=== PATIENT | female | born 1970 | race Caucasian/White ===

== ENCOUNTER 2017-05-05 18:20 | Emergency (ER) | payer OTHER ==
--- NOTE | 2017-05-05 18:50 | UC ---
Eye Complaint HPI - HPI Summary HPI Summary: 46 YEAR OLD FEMALE PRESENTS WITH COMPLAINS OF LEFT EYE PAIN/SWELLING. - History of Current Complaint Stated Complaint: LEFT EYE SWELLING AND PAIN Time Seen by Provider: 05/05/17 18:50 Hx Obtained From: Patient Hx Last Menstrual Period: 10/24/16 Onset/Duration: Sudden Onset Timing: Constant Severity Initially: Moderate Severity Currently: Moderate Pain Scale Used: 0-10 Numeric - 7 Location of Injury: Conjunctiva Character: Sharp, Throbbing Aggravating Factor(s): Light Alleviating Factor(s): Nothing - Allergies/Home Medications Allergies/Adverse Reactions: Allergies Allergy/AdvReac Type Severity Reaction Status Date / Time Acetaminophen Allergy Facial Verified 05/05/17 18:51 [From NyQuil Nighttime Redness/Flushing Cold/Flu Medicine] Bee Venom Allergy Rash Verified 05/05/17 18:51 Dextromethorphan Allergy Facial Verified 05/05/17 18:51 [From NyQuil Nighttime Redness/Flushing Cold/Flu Medicine] Doxylamine Allergy Facial Verified 05/05/17 18:51 [From NyQuil Nighttime Redness/Flushing Cold/Flu Medicine] Ethanol Allergy Facial Verified 05/05/17 18:51 [From NyQuil Nighttime Redness/Flushing Cold/Flu Medicine] Gabapentin [From Neurontin] Allergy See Comment Verified 05/05/17 18:51 Penicillins [PCN] Allergy Hives Verified 05/05/17 18:51 Pseudoephedrine Allergy Facial Verified 05/05/17 18:51 [From NyQuil Nighttime Redness/Flushing Cold/Flu Medicine] Sulfamethoxazole Allergy Hives Verified 05/05/17 18:51 w/Trimethoprim [From Bactrim] PMH/Surg Hx/FS Hx/Imm Hx Previously Healthy: Yes - Surgical History Surgical History: Yes Surgery Procedure, Year, and Place: tonsillectomy, csection x2, tubal x2, tubal reversal - Family History Known Family History: Negative: Diabetes - Social History Alcohol Use: Occasionally Substance Use Type: None Smoking Status (MU): Never Smoked Tobacco Review of Systems Constitutional: Negative Skin: Negative Eyes: Drainage, Eye Redness, Photophobia ENT: Negative Respiratory: Negative Cardiovascular: Negative Gastrointestinal: Negative Genitourinary: Negative Motor: Negative Neurovascular: Negative Musculoskeletal: Negative Neurological: Negative Psychological: Negative All Other Systems Reviewed And Are Negative: Yes Physical Exam Triage Information Reviewed: Yes Vital Signs Reviewed: Yes Eyes: Positive: Conjunctiva Inflamed, Discharge ENT Exam: Normal Dental Exam: Normal Neck exam: Normal Neck: Positive: 1 Respiratory Exam: Normal Cardiovascular Exam: Normal Abdominal Exam: Normal Musculoskeletal Exam: Normal Neurological Exam: Normal Psychological Exam: Normal Skin Exam: Normal Eye Complaint Course/Dx - Differential Dx/Diagnosis Provider Diagnoses: ALLERGIC CONJUNCTIVITIS Discharge - Discharge Plan Condition: Stable Disposition: HOME Prescriptions: DOXYcycline CAP(*) [DOXYcycline 100MG CAP(*)] 100 mg PO BID #14 cap Magic M W2 Adama/Maal/Nyst/Lido* 5 ml SWISH SPIT QID PRN #120 ml PRN Reason: Sore Throat Tobramycin/Dexameth OPTH.SUSP* [Tobradex 0.3-0.1%*] 1 drop LEFT EYE Q6H #1 btl Patient Education Materials: Pharyngitis (ED), Sinusitis (ED), Strep Throat (ED ), Eye Pain (ED) Referrals: Talat Hall MD [Medical Doctor] - Bev BUTLER,Santiago Cherry [Primary Care Provider] -
[2017-05-05 19:00] VITALS: BP 105/69
== END 2017-05-05 19:23 | disposition home or self-care (01) ==
LOC: UCCORT 18:20
DX: H10.12 Acute atopic conjunctivitis, left eye (principal); Z88.5 Allergy status to narcotic agent; Z88.8 Allergy status to other drugs, medicaments and biological substances
CPT/HCPCS: 87651; 99212; G0463

== ENCOUNTER 2018-04-23 07:58 | Inpatient (IN) | payer OTHER ==
[~2018-04-23 07:58] MED LIST: Buffered Lidocaine 0.9% SYRIN* 5 ML/SYR SYRINGE INTRADERM ONE; Dexamethasone IV* 4 MG/ML 1 ML (4 MG) IV SLOW PU ONE
[2018-04-23] MEDS ORDERED: Dexamethasone IV* 4 MG/ML 1 ML (4 MG) ONE (09:11)
[2018-04-23] MEDS ORDERED: Clindamycin 900 MG/D5W BAG(*) 900 MG/50 ML BAG IVPB ONE (09:16)
[2018-04-23] MEDS ORDERED: Ondansetron INJ* 2 MG/ML VIAL IV PRN (09:45)
[2018-04-23] MEDS ORDERED: diPHENhydraMINE IV* 50 MG/ML 1 ml VIAL (BENADRYL) IV PRN (09:45)
[2018-04-23] MEDS ORDERED: Ferrous Sulfate TAB* 325 MG PO PRN (09:58)
[2018-04-23] MEDS: oxyCODONE TAB* 5 MG TAB PO PRN ×2 (10:42→20:30)
[2018-04-23] MEDS: Acetaminophen TAB* 325 MG PO SCH ×2 (13:00→20:31)
[2018-04-23] MEDS ORDERED: Vancomycin(*) 1,000 MG - ED ONCE IVPB ONE ×2 (14:00)
--- OUTSIDE RECORDS SUMMARY | 2018-04-23 15:07 | XMS REPORT ---
:1970 External Reference #:[id number] Author Organization [employer] Address [address] [place] [address] Phone [phone] Care Team Providers Name Role Phone Dayo Mina M.D. Primary Care Physician Unavailable Payers Type Date Identification Numbers Payment Provider Subscriber Commercial Policy Number: [id number] Juve Shah PayID: [id number] [address] [place] [address] Problems Date Description Provider Status Onset: 04/21/2018 Closed fracture of metatarsal bone Humberto Yao MD Active Social History Type Date Description Comments Smoking Patient has never smoked Allergies, Adverse Reactions, Alerts Date Description Reaction Status Severity Comments 04/21/2018 Penicillin active 04/21/2018 Neurontin active 04/21/2018 Bactrim active 04/21/2018 Latex active Medications Medication Date Status Form Strength Qnty SIG Indications Ordering Provider Clindamycin Active Capsules 150mg 15caps 1 by Humberto HCL 018 mouth Najma three times a day Knee Scooter Active use as S92.322A Humberto 018 needed sadaf Yao MD non-weigh tbearing S92.332A S92.342A Hydrocodone-Acetaminophen Active Tablets 5-325mg Unknown Clonidine HCL Active Tablets 0.3mg Santiago Pablo PA Hydroxyzine HCL Active Tablets 25mg Santiago Pablo PA Lovastatin Active Tablets 40mg Santiago Pablo PA Pramipexole Dihydrochloride Active Tablets 0.5mg Santiago Pablo PA Vitamin D (Ergocalciferol) Active Capsules [id number] Summer Carrillo FNP Tizanidine HCL Active Tablets 4mg Santiago Pablo PA Omeprazole Active Capsules DR 20mg Summer Carrillo FNP Nabumetone Active Tablets 500mg Unknown Metoclopramide HCL Active Tablets 10mg Dayo Mina M.D. Metformin HCL Active Tablets 500mg Dayo Mina M.D. Dicyclomine HCL Active Capsules 10mg Summer Carrillo FNP Aripiprazole Active Tablets 5mg Unknown Bupropion HCL ER (XL) Active Tablets ER 300mg Unknown 24HR Vital Signs Date Vital Result Comment 04/21/2018 Height 69 inches 5'9" Weight 200.00 lb Heart Rate 70 /min BP Systolic 130 mmHg BP Diastolic 74 mmHg Respiratory Rate 14 /min Pain Level 10 BMI (Body Mass Index) 29.5 kg/m2 Results Description No Information Procedures Date CPT Code Description Status 04/21/2018 82588 application of short leg splint Completed Encounters Type Date Location Provider CPT E/M Dx Office Visit 04/21/2018 [place] [id number] S92.322A 2:[facility] S92.332A S92.342A Plan of Care Future Appointment(s):05/05/2018 11:15 am - Humberto Yao MD [facility]04/21/2018 - Humberto Yao MDS92.322A Disp fx of second metatarsal bone, left foot, initNew Medication:Knee ScooterNew Xrays:Foot Left 3 + VWSFollow up:Follow Up: 13-15 days avallcM16.332A Disp fx of third metatarsal bone, left foot, initNew Medication:Knee BghucygT59.342A Disp fx of fourth metatarsal bone, left foot, initNew Medication:Knee Scooter
[2018-04-23 15:09] LABS: ABS Basophils 0 10^3/ul (0-0.2); ABS Eosinophils 0.1 10^3/ul (0-0.6); ABS Lymphocytes 1.4 10^3/ul (1.0-4.8); ABS Monocytes 0.4 10^3/ul (0-0.8); ABS Neutrophils 7.4 10^3/ul (1.5-7.7); ABS Nucleated RBC 0 10^3/ul; Eosinophil % 1.1 % (0-6); Hematocrit 35 % (35-47); Hemoglobin 11.8 g/dl (12.0-16.0); Lymphocyte % 14.8 % (25-47); Mean Corpuscular HGB Conc 34 g/dl (31-36); Mean Corpuscular Hemoglobin 28 pg (27-31); Mean Corpuscular Volume 83 fL (80-97); Mean Platelet Volume 6.7 um3 (7.4-10.4); Nucleated Red Blood Cells % 0.3; Platelet Count 268 10^3/ul (150-450); Red Blood Count 4.21 10^6/ul (4.00-5.40); Red Cell Distribution Width 13 % (10.5-15); White Blood Count 9.3 10^3/ul (3.5-10.8)
[2018-04-23] MEDS ORDERED: Dextrose 50% Syringe 50 ML* 25 GM/50 ML SYRINGE IV PUSH PRN (15:31)
[2018-04-23] MEDS ORDERED: Vancomycin per Pharmacy* NOTE FOLLOW UP PRN (15:51)
[2018-04-23] MEDS: Insulin LISPRO* 1 UNITS UNIT SUBCUT SCH ×2 (17:07→20:36)
--- NOTE | 2018-04-23 17:28 | CONS ---
CONSULTATION REPORT: DATE OF CONSULT: 04/23/18 REQUESTING PHYSICIAN: Dr. Yao. CONSULTING SERVICE: Infectious Disease. REASON FOR CONSULT: Left foot cellulitis. IMPRESSION: 1. Left lateral foot cellulitis in the setting of a recent abrasion from a fall about 10 or 12 days ago, which resulted in some metatarsal fractures. She had been casted earlier in the week and when the casting came off today in preparation for surgery, there was cellulitis. She has been on clindamycin for a couple of days in the meantime because of the abrasion. This could be staphylococcus or streptococcus. 2. Obesity. 3. Type 2 diabetes. RECOMMENDATION: Vancomycin goal trough 10 to 15, a CRP today, which we can follow along with her skin abnormality. HISTORY OF PRESENT ILLNESS: This is a 47-year-old diabetic woman admitted with left foot infection. She had fallen 10 to 12 days ago, had an abrasion on her foot, was seen at [facility], had a soft cast placed, followed up with Dr. Yao, was casted earlier in the week and started clindamycin because of an abrasion. She was here today for internal fixation, but because Dr. Yao noticed redness in the lateral foot on the abrasion at that time was , she is admitted now for IV antibiotics. She had taken clindamycin for about a day and a half and tolerated it well. She has not had an infection requiring hospitalization in the past or skin or soft tissue infection that she can recall. PAST MEDICAL HISTORY: 1. Obesity. 2. Diabetes, type 2. 3. Depression. 4. Iron deficiency. 5. Insomnia. 6. Hyperlipidemia. MEDICATIONS: 1. Tylenol. 2. Aripiprazole. 3. Bupropion. 4. Clonidine tablet. 5. Enoxaparin. 6. Ferrous sulfate. 7. Ibuprofen as needed. 8. Lovastatin. 9. Metformin. 10. Reglan. 11. Nystatin. 12. Omeprazole. 13. Pramipexole. 14. Trazodone. ALLERGIES: PENICILLIN caused hives, BACTRIM caused hives, DEXTROMETHORPHAN. FAMILY HISTORY: No recurrent infections. SOCIAL HISTORY: She lives in [place]. She denies injection drugs. She has no travel. REVIEW OF SYSTEMS: All negative except as noted above in 14-point review of systems. PHYSICAL EXAM: Vital Signs: Temperature is 36.2, heart rate 80, respiratory rate 16, blood pressure 106/76, oxygen saturation 98% on room air. In general, she is awake, not in distress. Neurologic: She is oriented x3, follows all commands. Moves all extremities. Sensation is intact to light touch in both feet. HEENT: There is no conjunctival hemorrhage. Oropharynx: Without lesions. Neck: Supple without mass. Lymph Nodes: There is no cervical, supraclavicular, inguinal, axillary, or epitrochlear lymphadenopathy. Heart has regular rate and rhythm without murmurs, rubs, or gallops. Lungs are clear to auscultation bilaterally. Abdomen: Soft, nontender, nondistended. There are bowel sounds present. Skin: There is no rash or splinter hemorrhage. Musculoskeletal: Left lateral foot well- demarcated erythema with tenderness, slight warmth. The erythema is non-blanching. There is no fluctuance. LABORATORY DATA: Glucose is 190. Please see impressions and recommendations as outlined above, which I have discussed with STEPHANIE Nova. Thanks for asking me to see Ms. Shah in consultation. [id number]/[facility] #: [id number] MTDD
[2018-04-23] MEDS: Ibuprofen TAB* 600 MG PO PRN (17:53)
[2018-04-23] MEDS: Vancomycin(*) 1,250 MG in NS 0.9% 250 ML* 250 ML IVPB SCH (20:05)
[2018-04-23] MEDS: Nystatin TOP POWDER* 15 GM BTL TOPICAL SCH (20:09)
[2018-04-23] MEDS: traZODone TAB* 100 MG PO SCH (20:30)
[2018-04-23] MEDS: Pramipexole TAB* 0.5 MG PO SCH (20:31)
[2018-04-23] MEDS: tiZANidine TAB* 2 MG PO SCH (20:31)
[2018-04-23] MEDS: Omeprazole CAP* 20 MG PO SCH (20:31)
[2018-04-23] MEDS: Dicyclomine CAP* 10 MG PO SCH (20:32)
[2018-04-23] MEDS: cloNIDine TAB* 0.1 MG PO SCH (20:32)
[2018-04-23] MEDS: hydrOXYzine HCL TAB* 50 MG PO SCH (20:32)
[2018-04-23] MEDS: DOXYcycline CAP(*) 100 MG PO SCH (20:32)
[2018-04-23] MEDS: ARIPiprazole TAB* 5 MG PO SCH (20:32)
[2018-04-23] MEDS: Atorvastatin* 10 MG TAB PO SCH (20:32)
[2018-04-23] MEDS: Metoclopramide TAB* 10 MG PO SCH (20:32)
[2018-04-23] MEDS: Nabumetone TAB* 500 MG PO SCH (20:35)
[2018-04-23] MEDS: Enoxaparin(*) 40 MG/0.4 ML SYR SUBCUT SCH (20:36)
[2018-04-23] MEDS ORDERED: metFORMIN* 500 MG TAB PO SCH (21:00)
--- NOTE | 2018-04-23 21:49 | CONS ---
CC: CARRIE Siddiqui; Dr. Yao; Dr. Maldonado * CONSULTATION REPORT: DATE OF CONSULT: 04/23/18 PRIMARY CARE PROVIDER: CARRIE Siddiqui REQUESTING PHYSICIAN: Dr. Yao. INFECTIOUS DISEASE SPECIALIST: Dr. Maldonado. CHIEF COMPLAINT: Left foot fracture. HISTORY OF PRESENT ILLNESS: Ruthie Shah is a 47-year-old female with history of obesity and diabetes, who slipped, fell and fractured her left 2nd, 3rd and 4th metatarsal bone. She was seen by Dr. Yao in the office and was diagnosed . She had a cast that was kept open today preoperatively. She was scheduled originally for ORIF of the fracture. It was noted once the cast was removed, the patient had cellulitis in the area of the left foot. She was admitted to the hospital. Medicine consult was requested for medical management of diabetes and hypertension. PAST MEDICAL HISTORY: 1. Diabetes type 2 for the past year or 2. 2. History of dyslipidemia. 3. Gastroesophageal reflux disease. 4. History of anemia. 5. Anxiety. 6. History of depression. 7. History of PTSD. 8. History of chronic lower back pain. PAST SURGICAL HISTORY: 1. History of . 2. History of tubal ligation. 3. Tubal ligation reversal in the past. MEDICATIONS AT HOME: Include: 1. Percocet 1 tablet on a p.r.n. basis. 2. Clonidine 0.3 mg q.p.m. 3. Effexor XR 150 mg daily. 4. Hydroxyzine 50 mg at bedtime. 5. Metformin 500 mg b.i.d. 6. Trazodone 200 mg at bedtime. 7. Valtrex 1 g daily p.r.n. 8. Tizanidine 4 mg b.i.d. 9. Mirapex 0.5 mg at bedtime. 10. Omeprazole 20 mg daily. 11. Nystatin on a p.r.n. basis b.i.d. 12. Relafen 500 mg b.i.d. 13. Reglan 10 mg b.i.d. 14. Mevacor 40 mg at bedtime. 15. Ibuprofen on a p.r.n. basis. 16. Ferrous sulfate 325 mg daily p.r.n. 17. Vitamin D 50,000 units weekly. 18. Doxycycline 100 mg b.i.d. 19. Clindamycin 150 mg b.i.d. 20. Bupropion XL 300 mg daily. 21. Abilify 7.5 mg q.p.m. ALLERGIES: Include PENICILLIN, NEURONTIN, BACTRIM, and LATEX. FAMILY HISTORY: Positive for mother with anxiety. Father with diabetes. SOCIAL HISTORY: The patient denies any tobacco or drug use. She drinks rarely. She lives with her father, who will be her surrogate. Her father's name is Chip Colindres. REVIEW OF SYSTEMS: Please see history of present illness. The patient stated that she had been nonweightbearing on the left foot. She denies any shortness of breath or chest pain. She denies any recent fevers. Her appetite had been good. Her sugars have been rather well controlled; however, she does not check them that often. All the remaining 12 systems reviewed with the patient and were otherwise negative. PHYSICAL EXAM: Blood pressure of 105/65, heart rate of 92 and regular, respiratory rate 16, oxygen saturation 92% on room air, temperature 97.8. General: The patient is a very pleasant 47-year-old female, who is in no acute distress. Alert, awake, and oriented x3. HEENT: Head: Atraumatic, normocephalic. Eyes: Pupils are equal and reactive to light and accommodation. Oropharynx clear. Mucosa moist. Neck: Supple. No JVD. No bruits bilaterally. Cardiovascular: Regular rate and rhythm. No murmur. Respiratory: Clear to auscultation bilaterally. Abdomen: Prominent, soft, nontender. Bowel sounds are present in all 4 quadrants. Extremities: There is left midfoot edema with cellulitic/ecchymotic lesion on the dorsal and medial aspect of the left foot of approximately 20 cm in diameter. There are no fluctuant lesions within the area. There are no open skin wounds in the area. Pulses are +2 bilaterally. There is no clubbing or cyanosis. Neuro Evaluation : Speech clear. Cranial nerves II through XII are grossly intact. Motor strength is 5/5 bilaterally. DIAGNOSTIC STUDIES/LAB DATA: Laboratory data showed white blood cell count of 9.3, hemoglobin of 11.8, hematocrit of 35, and platelets of 268. ESR is pending. C- reactive protein was 53, glucose of 191. ASSESSMENT AND PLAN: 1. In regards to the patient's left foot cellulitis, it appears to be more bruise and ecchymotic area than cellulitis; nevertheless, the Infectious Disease specialist, Dr. Maldonado was already involved in the patient's care. The patient is currently on doxycycline as well as vancomycin while hospitalized. ID is going to follow. The patient is anticipated to undergo the surgery in approximately 3 days. 2. For the patient's diabetes, the patient is going to be placed on insulin sliding scale. Her metformin is going to be held while the patient is in the hospital. 3. For the patient's hypertension, clonidine is going to be continued. It is well controlled. 4. For the patient's history of depression, anxiety and posttraumatic stress disorder, aripiprazole and bupropion are going to be continued. 5. For DVT prophylaxis, the patient was already placed on enoxaparin by the surgical service. 6. The patient's code status was full and surrogate is her father as mentioned above. TIME SPENT: Approximately 55 minutes was spent on consultation of this patient , more than half that time was spent [id number] with the patient during the interview and physical exam. Thank you very much for allowing me to see your patient in consultation. We will follow with the patient on a daily basis. [id number]/[facility] #: [id number] ZULMA
[2018-04-24] MEDS: Ibuprofen TAB* 600 MG PO PRN ×3 (00:05→15:44)
[2018-04-24] MEDS: Acetaminophen TAB* 325 MG PO SCH ×3 (04:56→22:46)
[2018-04-24] MEDS: oxyCODONE TAB* 5 MG TAB PO PRN ×2 (04:56→13:46)
[2018-04-24] MEDS: Vancomycin(*) 1,250 MG in NS 0.9% 250 ML* 250 ML IVPB SCH ×3 (04:57→20:20)
[2018-04-24] MEDS: tiZANidine TAB* 2 MG PO SCH ×2 (08:28→22:48)
[2018-04-24] MEDS: Metoclopramide TAB* 10 MG PO SCH ×2 (08:29→22:48)
[2018-04-24] MEDS: Dicyclomine CAP* 10 MG PO SCH ×2 (08:29→22:53)
[2018-04-24] MEDS: DOXYcycline CAP(*) 100 MG PO SCH (08:29)
[2018-04-24] MEDS: Venlafaxine EXT RELEASE CAP* 75 MG PO SCH (08:29)
[2018-04-24] MEDS: BuPROPion XL* 300 MG TAB.XL PO SCH (08:29)
[2018-04-24] MEDS: Nabumetone TAB* 500 MG PO SCH ×2 (08:30→22:48)
[2018-04-24] MEDS: Insulin GLARGINE(*) 1 UNITS UNIT SUBCUT SCH (08:30)
[2018-04-24] MEDS: Insulin LISPRO* 1 UNITS UNIT SUBCUT SCH ×4 (08:30→22:48)
[2018-04-24] MEDS: Nystatin TOP POWDER* 15 GM BTL TOPICAL SCH ×2 (08:32→22:48)
--- NOTE | 2018-04-24 10:41 | PN ---
Progress Note - Progress Note Date of Service: 04/24/18 SOAP: Subjective: Pt doing well today, feeling better. No f/c. Could not tolerate je wrap on foot due to pain. Denies CP/SOB, n/v Objective: Vitals: Temp Pulse Resp BP Pulse Ox 97.7 F 86 18 109/71 99 04/24/18 07:40 04/24/18 07:40 04/24/18 10:38 04/24/18 07:40 04/24/18 08:00 Gen: A&Ox3, NAD at rest laying in bed LLE: +edema and ecchymosis to left foot, improved erythema. Still with TTP over dorsum of foot. N/V intact Labs: Laboratory Results - last 24 hr 04/23/18 04/23/18 04/23/18 10:40 10:40 16:17 WBC 9.3 RBC 4.21 Hgb 11.8 L Hct 35 MCV 83 MCH 28 MCHC 34 RDW 13 Plt Count 268 MPV 6.7 L Neut % (Auto) 79.5 Lymph % (Auto) 14.8 L [place] % (Auto) 4.4 Eos % (Auto) 1.1 Baso % (Auto) 0.2 Absolute Neuts (auto) 7.4 Absolute Lymphs (auto) 1.4 Absolute Monos (auto) 0.4 Absolute Eos (auto) 0.1 Absolute Basos (auto) 0 Absolute Nucleated RBC 0 Nucleated RBC % 0.3 ESR 4 Sodium Potassium Chloride Carbon Dioxide Anion Gap BUN Creatinine Est GFR ( Amer) Est GFR (Non-Af Amer) BUN/Creatinine Ratio Glucose POC Glucose (mg/dL) 219 H Calcium C-Reactive Protein 53.07 H 04/23/18 04/24/18 04/24/18 20:11 07:30 07:59 WBC RBC Hgb Hct MCV MCH MCHC RDW Plt Count MPV Neut % (Auto) Lymph % (Auto) [place] % (Auto) Eos % (Auto) Baso % (Auto) Absolute Neuts (auto) Absolute Lymphs (auto) Absolute Monos (auto) Absolute Eos (auto) Absolute Basos (auto) Absolute Nucleated RBC Nucleated RBC % ESR Sodium 137 Potassium 4.6 Chloride 105 Carbon Dioxide 24 Anion Gap 8 BUN 13 Creatinine 0.89 Est GFR ( Amer) 82.3 Est GFR (Non-Af Amer) 68.0 BUN/Creatinine Ratio 14.6 Glucose 183 H POC Glucose (mg/dL) 214 H 161 H Calcium 8.9 C-Reactive Protein Assessment: Left foot metatarsal fractures with overlying cellulitis Plan: Cont IV abx, awaiting ID consult. Pt to keep foot elevated often To OR Friday for ORIF left foot
--- NOTE | 2018-04-24 11:01 | PN ---
Subjective Date of Service: 04/24/18 Interval History: Pt feels well, left foot erythema is improving Objective Active Medications: Acetaminophen (Tylenol Tab*) 975 mg PO Q8H [facility] Last Admin: 04/24/18 04:56 Dose: 975 mg Aripiprazole (Abilify Tab*) 5 mg PO 2100 [facility] Last Admin: 04/23/18 20:32 Dose: 5 mg Atorvastatin Calcium (Lipitor*) 10 mg PO BEDTIME [facility]; Protocol Last Admin: 04/23/18 20:32 Dose: 10 mg Bupropion HCl (Bupropion Xl*) 300 mg PO QAM [facility] Last Admin: 04/24/18 08:29 Dose: 300 mg Clonidine HCl (Catapres Tab*) 0.3 mg PO 2100 [facility] Last Admin: 04/23/18 20:32 Dose: 0.3 mg Dextrose (D50w Syringe 50 Ml*) 12.5 gm IV PUSH .FOR FS < 60 - SS PRN PRN Reason: FS < 60 Dicyclomine HCl (Bentyl Cap*) 10 mg PO BID [facility] Last Admin: 04/24/18 08:29 Dose: 10 mg Diphenhydramine HCl (Benadryl Iv*) 25 mg IV Q6H PRN PRN Reason: itching Doxycycline Hyclate (Vibramycin Cap(*)) 100 mg PO BID [facility] Last Admin: 04/24/18 08:29 Dose: 100 mg Enoxaparin Sodium (Lovenox(*)) 40 mg SUBCUT Q24H [facility] Last Admin: 04/23/18 20:36 Dose: 40 mg Ferrous Sulfate (Ferrous Sulfate Tab*) 325 mg PO DAILY PRN PRN Reason: ANEMIA Hydroxyzine HCl (Atarax Tab*) 50 mg PO BEDTIME [facility] Last Admin: 04/23/18 20:32 Dose: 50 mg Lactated Ringer's (Lactated Ringers 1000 Ml Bag*) 1,000 mls @ 125 mls/hr IV PER RATE [facility] Last Admin: 04/23/18 09:12 Dose: 125 mls/hr Vancomycin HCl 1,250 mg/ (Sodium Chloride) 250 mls @ 166.667 mls/hr IVPB Q8H [facility]; Protocol Last Admin: 04/24/18 04:57 Dose: 166.667 mls/hr Ibuprofen (Motrin Tab*) 600 mg PO Q6H PRN PRN Reason: PAIN - MODERATE TO SEVERE Last Admin: 04/24/18 08:30 Dose: 600 mg Insulin Glargine (Lantus(*)) 5 units SUBCUT Q24H [facility] Last Admin: 04/24/18 08:30 Dose: 5 unit Insulin Human Lispro (Humalog*) 0 units SUBCUT ACHS [facility]; Protocol Last Admin: 04/24/18 08:30 Dose: 2 units Metoclopramide HCl (Reglan Tab*) 10 mg PO BID [facility] Last Admin: 04/24/18 08:29 Dose: 10 mg Nabumetone (Relafen Tab*) 500 mg PO BID [facility] Last Admin: 04/24/18 08:30 Dose: 500 mg Nystatin (Nystatin Top Powder*) 1 applic TOPICAL BID [facility] Last Admin: 04/24/18 08:32 Dose: Not Given Omeprazole (Prilosec Cap*) 20 mg PO 2100 [facility] Last Admin: 04/23/18 20:31 Dose: 20 mg Ondansetron HCl (Zofran Inj*) 4 mg IV Q6H PRN PRN Reason: nausea Oxycodone HCl (Roxycodone Tab*) 5 mg PO Q8H PRN PRN Reason: PAIN - SEVERE Last Admin: 04/24/18 04:56 Dose: 5 mg Pharmacy Consult (Vancomycin Per Pharmacy*) 1 note FOLLOW UP . PRN PRN Reason: PER PROTOCOL Pharmacy Profile Note (Vancomycin Trough Check) 1 note FOLLOW UP ONCE ONE Stop: 04/24/18 11:31 Pramipexole Dihydrochloride (Mirapex Tab*) 0.5 mg PO BEDTIME [facility] Last Admin: 04/23/18 20:31 Dose: 0.5 mg Tizanidine HCl (Zanaflex Tab*) 4 mg PO BID [facility] Last Admin: 04/24/18 08:28 Dose: 4 mg Trazodone HCl (Desyrel Tab*) 200 mg PO BEDTIME [facility] Last Admin: 04/23/18 20:30 Dose: 200 mg Venlafaxine HCl (Effexor Xr Cap*) 150 mg PO QAM [facility] Last Admin: 04/24/18 08:29 Dose: 150 mg Vital Signs - 8 hr 04/24/18 04/24/18 04/24/18 04:56 05:05 07:31 Temperature 97.7 F Pulse Rate 81 Respiratory 16 16 18 Rate Blood Pressure 111/72 (mmHg) O2 Sat by Pulse 98 Oximetry 04/24/18 04/24/18 04/24/18 07:40 08:00 08:29 Temperature 97.7 F Pulse Rate 86 Respiratory 16 18 18 Rate Blood Pressure 109/71 (mmHg) O2 Sat by Pulse 99 99 Oximetry 04/24/18 10:38 Temperature Pulse Rate Respiratory 18 Rate Blood Pressure (mmHg) O2 Sat by Pulse Oximetry Oxygen Devices in Use Now: None Appearance: 47 yo F in nAD, aAOx3 Eyes: No Scleral Icterus, PERRLA Ears/Nose/Mouth/Throat: NL Teeth, Lips, Gums, Mucous Membranes Moist Neck: NL Appearance and Movements; NL JVP, Trachea Midline Respiratory: Symmetrical Chest Expansion and Respiratory Effort, Clear to Auscultation Cardiovascular: NL Sounds; No Murmurs; No JVD Abdominal: NL Sounds; No Tenderness; No Distention, No Hepatosplenomegaly Lymphatic: No Cervical Adenopathy Extremities: No Clubbing, Cyanosis, - - left foot dorsal aspect erythema and edema -improving Skin: No Nodules or Sclerosis Neurological: Alert and Oriented x 3, NL Muscle Strength and Tone Result Diagrams: 04/23/18 10:40 04/24/18 07:30 Assess/Plan/Problems-Billing Assessment: 47 yo F with h/o HTN, DM with left metatarsal bones fx presented for elective ORIF and was noted to have cellulitis on let foot - Patient Problems (1) Cellulitis of left foot Comment: On Vancomycin as per DR. Maldonado (2) Metatarsal bone fracture Comment: Planned for ORIF on Friday (3) DM type 2 (diabetes mellitus, type 2) Comment: metformin held cont ISS starting Lantus (4) HTN (hypertension) Comment: cont clonidine (5) DVT prophylaxis Comment: cont Lovenox Status and Disposition: inpatient, medicine consult will follow daily
[2018-04-24] MEDS ORDERED: Vancomycin Trough Check NOTE FOLLOW UP ONE (11:30)
[2018-04-24] MEDS: Atorvastatin* 10 MG TAB PO SCH (22:47)
[2018-04-24] MEDS: cloNIDine TAB* 0.1 MG PO SCH (22:47)
[2018-04-24] MEDS: ARIPiprazole TAB* 5 MG PO SCH (22:47)
[2018-04-24] MEDS: Enoxaparin(*) 40 MG/0.4 ML SYR SUBCUT SCH (22:47)
[2018-04-24] MEDS: hydrOXYzine HCL TAB* 50 MG PO SCH (22:48)
[2018-04-24] MEDS: Omeprazole CAP* 20 MG PO SCH (22:48)
[2018-04-24] MEDS: Pramipexole TAB* 0.5 MG PO SCH (22:48)
[2018-04-24] MEDS: traZODone TAB* 100 MG PO SCH (22:49)
[2018-04-24] MEDS: Senna TAB PO SCH (23:23)
[2018-04-24] MEDS: Docusate CAP* 100 MG PO SCH (23:23)
[2018-04-25] MEDS: Ibuprofen TAB* 600 MG PO PRN ×3 (04:30→21:11)
[2018-04-25] MEDS: Vancomycin(*) 1,250 MG in NS 0.9% 250 ML* 250 ML IVPB SCH ×3 (04:49→19:35)
[2018-04-25] MEDS: Acetaminophen TAB* 325 MG PO SCH ×3 (05:08→21:09)
[2018-04-25] MEDS: Venlafaxine EXT RELEASE CAP* 75 MG PO SCH (07:53)
[2018-04-25] MEDS: Insulin LISPRO* 1 UNITS UNIT SUBCUT SCH ×4 (07:53→21:39)
[2018-04-25] MEDS: Insulin GLARGINE(*) 1 UNITS UNIT SUBCUT SCH (07:54)
[2018-04-25] MEDS: Metoclopramide TAB* 10 MG PO SCH ×2 (07:54→21:11)
[2018-04-25] MEDS: Docusate CAP* 100 MG PO SCH ×2 (07:54→21:09)
[2018-04-25] MEDS: oxyCODONE TAB* 5 MG TAB PO PRN ×2 (07:54→16:36)
[2018-04-25] MEDS: Nabumetone TAB* 500 MG PO SCH ×2 (07:54→21:13)
[2018-04-25] MEDS: BuPROPion XL* 300 MG TAB.XL PO SCH (07:55)
[2018-04-25] MEDS: tiZANidine TAB* 2 MG PO SCH ×2 (07:55→21:08)
[2018-04-25] MEDS: Dicyclomine CAP* 10 MG PO SCH ×2 (07:55→21:08)
[2018-04-25] MEDS: Nystatin TOP POWDER* 15 GM BTL TOPICAL SCH ×2 (07:56→22:08)
--- NOTE | 2018-04-25 16:29 | PN ---
Subjective Date of Service: 04/25/18 Interval History: Pt feels well. No new complaints Objective Active Medications: Acetaminophen (Tylenol Tab*) 975 mg PO Q8H [facility] Last Admin: 04/25/18 12:55 Dose: 975 mg Aripiprazole (Abilify Tab*) 5 mg PO 2100 [facility] Last Admin: 04/24/18 22:47 Dose: 5 mg Atorvastatin Calcium (Lipitor*) 10 mg PO BEDTIME [facility]; Protocol Last Admin: 04/24/18 22:47 Dose: 10 mg Bupropion HCl (Bupropion Xl*) 300 mg PO QAM [facility] Last Admin: 04/25/18 07:55 Dose: 300 mg Clonidine HCl (Catapres Tab*) 0.3 mg PO 2100 [facility] Last Admin: 04/24/18 22:47 Dose: 0.3 mg Dextrose (D50w Syringe 50 Ml*) 12.5 gm IV PUSH .FOR FS < 60 - SS PRN PRN Reason: FS < 60 Dicyclomine HCl (Bentyl Cap*) 10 mg PO BID [facility] Last Admin: 04/25/18 07:55 Dose: 10 mg Diphenhydramine HCl (Benadryl Iv*) 25 mg IV Q6H PRN PRN Reason: itching Docusate Sodium (Colace Cap*) 100 mg PO BID [facility] Last Admin: 04/25/18 07:54 Dose: 100 mg Enoxaparin Sodium (Lovenox(*)) 40 mg SUBCUT Q24H [facility] Last Admin: 04/24/18 22:47 Dose: 40 mg Ferrous Sulfate (Ferrous Sulfate Tab*) 325 mg PO DAILY PRN PRN Reason: ANEMIA Hydroxyzine HCl (Atarax Tab*) 50 mg PO BEDTIME [facility] Last Admin: 04/24/18 22:48 Dose: 50 mg Lactated Ringer's (Lactated Ringers 1000 Ml Bag*) 1,000 mls @ 125 mls/hr IV PER RATE [facility] Last Admin: 04/23/18 09:12 Dose: 125 mls/hr Vancomycin HCl 1,250 mg/ (Sodium Chloride) 250 mls @ 166.667 mls/hr IVPB Q8H [facility]; Protocol Last Admin: 04/25/18 12:55 Dose: 166.667 mls/hr Ibuprofen (Motrin Tab*) 600 mg PO Q6H PRN PRN Reason: PAIN - MODERATE TO SEVERE Last Admin: 04/25/18 14:44 Dose: 600 mg Insulin Glargine (Lantus(*)) 5 units SUBCUT Q24H [facility] Last Admin: 04/25/18 07:54 Dose: 5 unit Insulin Human Lispro (Humalog*) 0 units SUBCUT ACHS [facility]; Protocol Last Admin: 04/25/18 12:55 Dose: 2 units Metoclopramide HCl (Reglan Tab*) 10 mg PO BID [facility] Last Admin: 04/25/18 07:54 Dose: 10 mg Nabumetone (Relafen Tab*) 500 mg PO BID [facility] Last Admin: 04/25/18 07:54 Dose: 500 mg Nystatin (Nystatin Top Powder*) 1 applic TOPICAL BID [facility] Last Admin: 04/25/18 07:56 Dose: Not Given Omeprazole (Prilosec Cap*) 20 mg PO 2100 [facility] Last Admin: 04/24/18 22:48 Dose: 20 mg Ondansetron HCl (Zofran Inj*) 4 mg IV Q6H PRN PRN Reason: nausea Oxycodone HCl (Roxycodone Tab*) 5 mg PO Q8H PRN PRN Reason: PAIN - SEVERE Last Admin: 04/25/18 07:54 Dose: 5 mg Pharmacy Consult (Vancomycin Per Pharmacy*) 1 note FOLLOW UP . PRN PRN Reason: PER PROTOCOL Pramipexole Dihydrochloride (Mirapex Tab*) 0.5 mg PO BEDTIME [facility] Last Admin: 04/24/18 22:48 Dose: 0.5 mg Senna (Senokot Tab*) 2 tab PO BEDTIME [facility] Last Admin: 04/24/18 23:23 Dose: 2 tab Tizanidine HCl (Zanaflex Tab*) 4 mg PO BID [facility] Last Admin: 04/25/18 07:55 Dose: 4 mg Trazodone HCl (Desyrel Tab*) 200 mg PO BEDTIME [facility] Last Admin: 04/24/18 22:49 Dose: 200 mg Venlafaxine HCl (Effexor Xr Cap*) 150 mg PO QAM [facility] Last Admin: 04/25/18 07:53 Dose: 150 mg Vital Signs - 8 hr 04/25/18 04/25/18 04/25/18 09:59 11:30 15:27 Temperature 97.7 F 97.4 F Pulse Rate 69 64 Respiratory 16 16 19 Rate Blood Pressure 104/63 150/71 (mmHg) O2 Sat by Pulse 99 100 Oximetry Oxygen Devices in Use Now: None Appearance: 47 yo F in nAD, aAOx3 Eyes: No Scleral Icterus, PERRLA Ears/Nose/Mouth/Throat: NL Teeth, Lips, Gums, Mucous Membranes Moist Neck: NL Appearance and Movements; NL JVP, Trachea Midline Respiratory: Symmetrical Chest Expansion and Respiratory Effort, Clear to Auscultation Cardiovascular: NL Sounds; No Murmurs; No JVD, RRR Abdominal: NL Sounds; No Tenderness; No Distention Lymphatic: No Cervical Adenopathy Extremities: No Clubbing, Cyanosis, - - edema of dorsum of left foot unchanged Skin: No Nodules or Sclerosis, - - left foor cellulitis, ecchymosis unchanged Neurological: Alert and Oriented x 3, NL Muscle Strength and Tone Result Diagrams: 04/23/18 10:40 04/24/18 07:30 Assess/Plan/Problems-Billing Assessment: 47 yo F with h/o HTN, DM with left metatarsal bones fx presented for elective ORIF and was noted to have cellulitis on let foot - Patient Problems (1) Cellulitis of left foot Comment: On Vancomycin as per DR. Maldonado (2) Metatarsal bone fracture Comment: Planned for ORIF on Friday (3) DM type 2 (diabetes mellitus, type 2) Comment: metformin held cont ISS started Lantus (4) HTN (hypertension) Comment: cont clonidine (5) DVT prophylaxis Comment: cont Lovenox Status and Disposition: inpatient, medicine consult will follow daily
[2018-04-25] MEDS: hydrOXYzine HCL TAB* 50 MG PO SCH (21:09)
[2018-04-25] MEDS: Omeprazole CAP* 20 MG PO SCH (21:10)
[2018-04-25] MEDS: ARIPiprazole TAB* 5 MG PO SCH (21:10)
[2018-04-25] MEDS: Atorvastatin* 10 MG TAB PO SCH (21:11)
[2018-04-25] MEDS: Senna TAB PO SCH (21:11)
[2018-04-25] MEDS: traZODone TAB* 100 MG PO SCH (21:12)
[2018-04-25] MEDS: cloNIDine TAB* 0.1 MG PO SCH (21:12)
[2018-04-25] MEDS: Enoxaparin(*) 40 MG/0.4 ML SYR SUBCUT SCH (21:13)
[2018-04-25] MEDS: Pramipexole TAB* 0.5 MG PO SCH (22:00)
[2018-04-26] MEDS: Vancomycin(*) 1,250 MG in NS 0.9% 250 ML* 250 ML IVPB SCH ×3 (04:07→12:34)
[2018-04-26] MEDS: Ibuprofen TAB* 600 MG PO PRN ×3 (04:18→23:35)
[2018-04-26] MEDS: oxyCODONE TAB* 5 MG TAB PO PRN ×3 (04:18→20:42)
[2018-04-26] MEDS: Acetaminophen TAB* 325 MG PO SCH ×3 (04:50→20:27)
[2018-04-26 06:56] LABS: EGFR Non-African American 63.8 (>60)
[2018-04-26] MEDS: Insulin GLARGINE(*) 1 UNITS UNIT SUBCUT SCH (07:37)
[2018-04-26] MEDS: Insulin LISPRO* 1 UNITS UNIT SUBCUT SCH ×4 (07:37→20:40)
[2018-04-26] MEDS: Metoclopramide TAB* 10 MG PO SCH ×2 (07:38→20:30)
[2018-04-26] MEDS: Venlafaxine EXT RELEASE CAP* 75 MG PO SCH (07:38)
[2018-04-26] MEDS: Nabumetone TAB* 500 MG PO SCH ×2 (07:38→20:42)
[2018-04-26] MEDS: Docusate CAP* 100 MG PO SCH ×2 (07:38→20:29)
[2018-04-26] MEDS: Dicyclomine CAP* 10 MG PO SCH ×2 (07:38→20:29)
[2018-04-26] MEDS: BuPROPion XL* 300 MG TAB.XL PO SCH (07:38)
[2018-04-26] MEDS: Nystatin TOP POWDER* 15 GM BTL TOPICAL SCH ×2 (07:38→20:52)
[2018-04-26] MEDS: tiZANidine TAB* 2 MG PO SCH ×2 (07:39→20:28)
--- NOTE | 2018-04-26 09:10 | PN ---
Subjective Date of Service: 04/26/18 Interval History: Pt feels well, no new complaints Objective Active Medications: Acetaminophen (Tylenol Tab*) 975 mg PO Q8H [facility] Last Admin: 04/26/18 04:50 Dose: 975 mg Aripiprazole (Abilify Tab*) 5 mg PO 2100 [facility] Last Admin: 04/25/18 21:10 Dose: 5 mg Atorvastatin Calcium (Lipitor*) 10 mg PO BEDTIME [facility]; Protocol Last Admin: 04/25/18 21:11 Dose: 10 mg Bupropion HCl (Bupropion Xl*) 300 mg PO QAM [facility] Last Admin: 04/26/18 07:38 Dose: 300 mg Clonidine HCl (Catapres Tab*) 0.3 mg PO 2100 [facility] Last Admin: 04/25/18 21:12 Dose: 0.3 mg Dextrose (D50w Syringe 50 Ml*) 12.5 gm IV PUSH .FOR FS < 60 - SS PRN PRN Reason: FS < 60 Dicyclomine HCl (Bentyl Cap*) 10 mg PO BID [facility] Last Admin: 04/26/18 07:38 Dose: 10 mg Diphenhydramine HCl (Benadryl Iv*) 25 mg IV Q6H PRN PRN Reason: itching Docusate Sodium (Colace Cap*) 100 mg PO BID [facility] Last Admin: 04/26/18 07:38 Dose: 100 mg Enoxaparin Sodium (Lovenox(*)) 40 mg SUBCUT Q24H [facility] Last Admin: 04/25/18 21:13 Dose: 40 mg Ferrous Sulfate (Ferrous Sulfate Tab*) 325 mg PO DAILY PRN PRN Reason: ANEMIA Hydroxyzine HCl (Atarax Tab*) 50 mg PO BEDTIME [facility] Last Admin: 04/25/18 21:09 Dose: 50 mg Lactated Ringer's (Lactated Ringers 1000 Ml Bag*) 1,000 mls @ 125 mls/hr IV PER RATE [facility] Last Admin: 04/23/18 09:12 Dose: 125 mls/hr Vancomycin HCl 1,250 mg/ (Sodium Chloride) 250 mls @ 166.667 mls/hr IVPB Q8H [facility]; Protocol Last Admin: 04/26/18 04:07 Dose: 166.667 mls/hr Ibuprofen (Motrin Tab*) 600 mg PO Q6H PRN PRN Reason: PAIN - MODERATE TO SEVERE Last Admin: 04/26/18 04:18 Dose: 600 mg Insulin Glargine (Lantus(*)) 5 units SUBCUT Q24H [facility] Stop: 04/26/18 23:59 Last Admin: 04/26/18 07:37 Dose: 5 unit Insulin Human Lispro (Humalog*) 0 units SUBCUT [facility]; Protocol Last Admin: 04/26/18 07:37 Dose: 1 units Metoclopramide HCl (Reglan Tab*) 10 mg PO BID [facility] Last Admin: 04/26/18 07:38 Dose: 10 mg Nabumetone (Relafen Tab*) 500 mg PO BID [facility] Last Admin: 04/26/18 07:38 Dose: 500 mg Nystatin (Nystatin Top Powder*) 1 applic TOPICAL BID [facility] Last Admin: 04/26/18 07:38 Dose: Not Given Omeprazole (Prilosec Cap*) 20 mg PO 2100 [facility] Last Admin: 04/25/18 21:10 Dose: 20 mg Ondansetron HCl (Zofran Inj*) 4 mg IV Q6H PRN PRN Reason: nausea Oxycodone HCl (Roxycodone Tab*) 5 mg PO Q8H PRN PRN Reason: PAIN - SEVERE Last Admin: 04/26/18 04:18 Dose: 5 mg Pharmacy Consult (Vancomycin Per Pharmacy*) 1 note FOLLOW UP . PRN PRN Reason: PER PROTOCOL Pramipexole Dihydrochloride (Mirapex Tab*) 0.5 mg PO BEDTIME [facility] Last Admin: 04/25/18 22:00 Dose: 0.5 mg Senna (Senokot Tab*) 2 tab PO BEDTIME [facility] Last Admin: 04/25/18 21:11 Dose: 2 tab Tizanidine HCl (Zanaflex Tab*) 4 mg PO BID [facility] Last Admin: 04/26/18 07:39 Dose: 4 mg Trazodone HCl (Desyrel Tab*) 200 mg PO BEDTIME [facility] Last Admin: 04/25/18 21:12 Dose: 200 mg Venlafaxine HCl (Effexor Xr Cap*) 150 mg PO QAM [facility] Last Admin: 04/26/18 07:38 Dose: 150 mg Vital Signs - 8 hr 04/26/18 04/26/18 04/26/18 04:18 04:21 06:30 Temperature 97.3 F Pulse Rate 73 Respiratory 16 16 16 Rate Blood Pressure 106/72 (mmHg) O2 Sat by Pulse 99 Oximetry 04/26/18 04/26/18 04/26/18 07:33 07:35 07:38 Temperature 97.7 F Pulse Rate 68 Respiratory 16 16 16 Rate Blood Pressure 115/66 (mmHg) O2 Sat by Pulse 100 100 Oximetry Oxygen Devices in Use Now: None Appearance: 47 yo F in nAD, AAOx3 Eyes: No Scleral Icterus, PERRLA Ears/Nose/Mouth/Throat: NL Teeth, Lips, Gums, Mucous Membranes Moist Neck: NL Appearance and Movements; NL JVP, Trachea Midline Respiratory: Symmetrical Chest Expansion and Respiratory Effort, Clear to Auscultation Cardiovascular: NL Sounds; No Murmurs; No JVD Abdominal: NL Sounds; No Tenderness; No Distention, No Hepatosplenomegaly Lymphatic: No Cervical Adenopathy Extremities: No Clubbing, Cyanosis, - - left foot edema unchanged Skin: No Nodules or Sclerosis, - - left foot erythema and ecchymosis-unchanged Neurological: Alert and Oriented x 3, NL Muscle Strength and Tone Result Diagrams: 04/23/18 10:40 04/26/18 06:08 Assess/Plan/Problems-Billing Assessment: 47 yo F with h/o HTN, DM with left metatarsal bones fx presented for elective ORIF and was noted to have cellulitis on let foot - Patient Problems (1) Cellulitis of left foot Comment: On Vancomycin as per DR. Maldonado (2) Metatarsal bone fracture Comment: Planned for ORIF on Friday (3) DM type 2 (diabetes mellitus, type 2) Comment: metformin held Lantus held in AM tomorrow due to OR day (4) HTN (hypertension) Comment: cont clonidine (5) DVT prophylaxis Comment: cont Lovenox Status and Disposition: inpatient, medicine consult will follow daily
--- NOTE | 2018-04-26 09:42 | PN ---
Progress Note - Progress Note Date of Service: 04/26/18 SOAP: Subjective: [Pt reports doing well. No complaints. Denies CP/SOB, f/c, n/v] Objective: [A and O x 3, NAD L foot + edema, mild ecchymosis, minimal erythema. TTP dorsum of foot. NV intact Vital Signs: Temp Pulse Resp BP Pulse Ox 97.7 F 68 15 115/66 100 04/26/18 07:33 04/26/18 07:33 04/26/18 09:31 04/26/18 07:33 04/26/18 07:35 Laboratory Results - last 24 hr 04/25/18 04/25/18 04/25/18 12:04 16:07 21:08 BUN Creatinine Est GFR ( Amer) Est GFR (Non-Af Amer) POC Glucose (mg/dL) 182 H 114 H 117 H 04/26/18 04/26/18 06:08 07:32 BUN 12 Creatinine 0.94 Est GFR ( Amer) 77.2 Est GFR (Non-Af Amer) 63.8 POC Glucose (mg/dL) 135 H ] Assessment: [L foot metatarsal fractures with overlying cellulitis] Plan: [Con't abx per ID Elevate L LE 2 pillows Lovenox NPO after midnight To OR on Friday]
[2018-04-26] MEDS: Vancomycin(*) 1,000 MG in NS 0.9% 250 ML* 250 ML IVPB SCH ×2 (16:13→23:36)
[2018-04-26] MEDS: cloNIDine TAB* 0.1 MG PO SCH (20:26)
[2018-04-26] MEDS: traZODone TAB* 100 MG PO SCH (20:28)
[2018-04-26] MEDS: ARIPiprazole TAB* 5 MG PO SCH (20:28)
[2018-04-26] MEDS: Pramipexole TAB* 0.5 MG PO SCH (20:29)
[2018-04-26] MEDS: Atorvastatin* 10 MG TAB PO SCH (20:29)
[2018-04-26] MEDS: Senna TAB PO SCH (20:30)
[2018-04-26] MEDS: hydrOXYzine HCL TAB* 50 MG PO SCH (20:30)
[2018-04-26] MEDS: Omeprazole CAP* 20 MG PO SCH (20:31)
[2018-04-26] MEDS: Enoxaparin(*) 40 MG/0.4 ML SYR SUBCUT SCH (20:32)
[2018-04-27] MEDS: Acetaminophen TAB* 325 MG PO SCH ×3 (05:10→21:41)
[2018-04-27] MEDS: oxyCODONE TAB* 5 MG TAB PO PRN ×2 (05:13→18:22)
[2018-04-27] MEDS ORDERED: Sodium Citrate/Citric Acid* 15 ML UDC PO ONE (06:00)
[2018-04-27] MEDS: BuPROPion XL* 300 MG TAB.XL PO SCH ×2 (06:46→09:02)
[2018-04-27] MEDS: Metoclopramide TAB* 10 MG PO SCH ×3 (06:46→21:44)
[2018-04-27] MEDS: Venlafaxine EXT RELEASE CAP* 75 MG PO SCH ×2 (06:47→09:03)
[2018-04-27] MEDS: tiZANidine TAB* 2 MG PO SCH ×3 (06:47→21:46)
[2018-04-27] MEDS: Dicyclomine CAP* 10 MG PO SCH ×3 (06:47→21:43)
[2018-04-27] MEDS: Docusate CAP* 100 MG PO SCH ×3 (06:48→21:44)
[2018-04-27] MEDS: Nabumetone TAB* 500 MG PO SCH ×3 (06:48→21:45)
[2018-04-27] MEDS ORDERED: Buffered Lidocaine 0.9% SYRIN* 5 ML/SYR SYRINGE INTRADERM ONE (07:00)
[2018-04-27] MEDS: Insulin LISPRO* 1 UNITS UNIT SUBCUT SCH ×4 (08:52→22:00)
--- NOTE | 2018-04-27 09:04 | PN ---
Subjective Date of Service: 04/27/18 Interval History: Pt feels well. no new complaints. Planned for OR today at 1 pm. L foot still swollen but improving Objective Active Medications: Acetaminophen (Tylenol Tab*) 975 mg PO Q8H [facility] Last Admin: 04/27/18 05:10 Dose: 975 mg Aripiprazole (Abilify Tab*) 5 mg PO 2100 [facility] Last Admin: 04/26/18 20:28 Dose: 5 mg Atorvastatin Calcium (Lipitor*) 10 mg PO BEDTIME [facility]; Protocol Last Admin: 04/26/18 20:29 Dose: 10 mg Bupropion HCl (Bupropion Xl*) 300 mg PO QAM [facility] Last Admin: 04/27/18 06:46 Dose: 300 mg Clonidine HCl (Catapres Tab*) 0.3 mg PO 2100 [facility] Last Admin: 04/26/18 20:26 Dose: 0.3 mg Dextrose (D50w Syringe 50 Ml*) 12.5 gm IV PUSH .FOR FS < 60 - SS PRN PRN Reason: FS < 60 Dicyclomine HCl (Bentyl Cap*) 10 mg PO BID [facility] Last Admin: 04/27/18 06:47 Dose: 10 mg Diphenhydramine HCl (Benadryl Iv*) 25 mg IV Q6H PRN PRN Reason: itching Docusate Sodium (Colace Cap*) 100 mg PO BID [facility] Last Admin: 04/27/18 06:48 Dose: 100 mg Enoxaparin Sodium (Lovenox(*)) 40 mg SUBCUT Q24H [facility] Last Admin: 04/26/18 20:32 Dose: 40 mg Ferrous Sulfate (Ferrous Sulfate Tab*) 325 mg PO DAILY PRN PRN Reason: ANEMIA Hydroxyzine HCl (Atarax Tab*) 50 mg PO BEDTIME [facility] Last Admin: 04/26/18 20:30 Dose: 50 mg Lactated Ringer's (Lactated Ringers 1000 Ml Bag*) 1,000 mls @ 125 mls/hr IV PER RATE [facility] Last Admin: 04/23/18 09:12 Dose: 125 mls/hr Vancomycin HCl 1,000 mg/ (Sodium Chloride) 250 mls @ 166.667 mls/hr IVPB Q8H [facility]; Protocol Last Admin: 04/26/18 23:36 Dose: 166.667 mls/hr Lactated Ringer's (Lactated Ringers 1000 Ml Bag*) 1,000 mls @ 125 mls/hr IV PER RATE [facility] Last Admin: 04/27/18 07:44 Dose: 125 mls/hr Ibuprofen (Motrin Tab*) 600 mg PO Q6H PRN PRN Reason: PAIN - MODERATE TO SEVERE Last Admin: 04/26/18 23:35 Dose: 600 mg Insulin Human Lispro (Humalog*) 0 units SUBCUT ACHS [facility]; Protocol Last Admin: 04/27/18 08:52 Dose: Not Given Metoclopramide HCl (Reglan Tab*) 10 mg PO BID [facility] Last Admin: 04/27/18 06:46 Dose: 10 mg Nabumetone (Relafen Tab*) 500 mg PO BID [facility] Last Admin: 04/27/18 06:48 Dose: 500 mg Nystatin (Nystatin Top Powder*) 1 applic TOPICAL BID [facility] Last Admin: 04/26/18 20:52 Dose: Not Given Omeprazole (Prilosec Cap*) 20 mg PO 2100 [facility] Last Admin: 04/26/18 20:31 Dose: 20 mg Ondansetron HCl (Zofran Inj*) 4 mg IV Q6H PRN PRN Reason: nausea Oxycodone HCl (Roxycodone Tab*) 5 mg PO Q8H PRN PRN Reason: PAIN - SEVERE Last Admin: 04/27/18 05:13 Dose: 5 mg Pharmacy Consult (Vancomycin Per Pharmacy*) 1 note FOLLOW UP . PRN PRN Reason: PER PROTOCOL Pharmacy Profile Note (Vancomycin Trough Check) 1 note FOLLOW UP ONCE ONE Stop: 04/28/18 08:01 Pramipexole Dihydrochloride (Mirapex Tab*) 0.5 mg PO BEDTIME [facility] Last Admin: 04/26/18 20:29 Dose: 0.5 mg Senna (Senokot Tab*) 2 tab PO BEDTIME [facility] Last Admin: 04/26/18 20:30 Dose: 2 tab Tizanidine HCl (Zanaflex Tab*) 4 mg PO BID [facility] Last Admin: 04/27/18 06:47 Dose: 4 mg Trazodone HCl (Desyrel Tab*) 200 mg PO BEDTIME [facility] Last Admin: 04/26/18 20:28 Dose: 200 mg Venlafaxine HCl (Effexor Xr Cap*) 150 mg PO QAM [facility] Last Admin: 04/27/18 06:47 Dose: 150 mg Vital Signs - 8 hr 04/27/18 04/27/18 04/27/18 03:26 05:13 06:47 Temperature 97.8 F Pulse Rate 71 Respiratory 16 16 16 Rate Blood Pressure 108/68 (mmHg) O2 Sat by Pulse 98 Oximetry 04/27/18 04/27/18 07:34 07:53 Temperature 97.3 F Pulse Rate 66 Respiratory 16 16 Rate Blood Pressure 108/68 (mmHg) O2 Sat by Pulse 97 Oximetry Oxygen Devices in Use Now: None Appearance: 47 yo F in nAD, aAOx3 Eyes: No Scleral Icterus, PERRLA Ears/Nose/Mouth/Throat: NL Teeth, Lips, Gums, Mucous Membranes Moist Neck: NL Appearance and Movements; NL JVP, Trachea Midline Respiratory: Symmetrical Chest Expansion and Respiratory Effort, Clear to Auscultation Cardiovascular: NL Sounds; No Murmurs; No JVD Abdominal: NL Sounds; No Tenderness; No Distention Lymphatic: No Cervical Adenopathy Extremities: No Clubbing, Cyanosis, - - L foort edema and ecchymosis/bruising on dorsum of foot Skin: No Nodules or Sclerosis Neurological: Alert and Oriented x 3, NL Muscle Strength and Tone Result Diagrams: 04/23/18 10:40 04/26/18 06:08 Assess/Plan/Problems-Billing Assessment: 47 yo F with h/o HTN, DM with left metatarsal bones fx presented for elective ORIF and was noted to have cellulitis on let foot - Patient Problems (1) Cellulitis of left foot Comment: On Vancomycin as per DR. Maldonado (2) Metatarsal bone fracture Comment: Planned for ORIF of metatarsal bones today (3) DM type 2 (diabetes mellitus, type 2) Comment: metformin held Lantus held due to OR day (4) HTN (hypertension) Comment: cont clonidine (5) DVT prophylaxis Comment: cont Lovenox Status and Disposition: inpatient, medicine consult will follow daily
[2018-04-27] MEDS: Vancomycin(*) 1,000 MG in NS 0.9% 250 ML* 250 ML IVPB SCH ×2 (09:08→15:32)
[2018-04-27] MEDS: Nystatin TOP POWDER* 15 GM BTL TOPICAL SCH ×2 (10:01→21:45)
[2018-04-27] MEDS ORDERED: oxyCODONE ORAL.SOLN* 5 MG/5 ML UDC ONE (11:59)
[2018-04-27] MEDS ORDERED: Sodium Citrate/Citric Acid* 15 ML UDC ONE (11:59)
[2018-04-27] MEDS ORDERED: Bupivacaine 0.5% SDV PF* 30ML VIAL ONE (12:53)
[2018-04-27] MEDS ORDERED: Clindamycin 900 MG/D5W BAG(*) 900 MG/50 ML BAG IVPB ONE (13:05)
[2018-04-27] MEDS ORDERED: Naloxone* 0.4 MG/ML 1 ML VIAL IV PRN (13:07)
[2018-04-27] MEDS ORDERED: fentaNYL* 50 MCG/ML 2 ML VIAL (100 MCG VIAL) ONE ×2 (13:15→14:41)
[2018-04-27] MEDS ORDERED: Lidocaine 2% PF * 5 ML VIAL ONE (13:16)
[2018-04-27] MEDS ORDERED: Propofol* 10 MG/ML 20 ML BTL IV PUSH ONE (13:16)
[2018-04-27] MEDS: fentaNYL* 50 MCG/ML 2 ML VIAL (100 MCG VIAL) IV PRN ×4 (14:42→14:54)
[2018-04-27] MEDS: Morphine INJ* 4 MG/ML 1 ML SYRINGE (NEW SYRINGE VERSION) IV PRN ×2 (19:56→22:02)
[2018-04-27] MEDS: Atorvastatin* 10 MG TAB PO SCH (21:42)
[2018-04-27] MEDS: ARIPiprazole TAB* 5 MG PO SCH (21:42)
[2018-04-27] MEDS: cloNIDine TAB* 0.1 MG PO SCH (21:42)
[2018-04-27] MEDS: hydrOXYzine HCL TAB* 50 MG PO SCH (21:44)
[2018-04-27] MEDS: Omeprazole CAP* 20 MG PO SCH (21:45)
[2018-04-27] MEDS: Pramipexole TAB* 0.5 MG PO SCH (21:45)
[2018-04-27] MEDS: Senna TAB PO SCH (21:46)
[2018-04-27] MEDS: traZODone TAB* 100 MG PO SCH (21:46)
[2018-04-27] MEDS: Ibuprofen TAB* 600 MG PO PRN (21:47)
[2018-04-27] MEDS: Enoxaparin(*) 40 MG/0.4 ML SYR SUBCUT SCH (21:59)
[2018-04-28] MEDS: Vancomycin(*) 1,000 MG in NS 0.9% 250 ML* 250 ML IVPB SCH (01:11)
[2018-04-28] MEDS: Morphine INJ* 4 MG/ML 1 ML SYRINGE (NEW SYRINGE VERSION) IV PRN ×2 (01:17→05:29)
[2018-04-28] MEDS: oxyCODONE TAB* 5 MG TAB PO PRN ×3 (02:29→17:07)
--- NOTE | 2018-04-28 03:47 | OP ---
DATE OF OPERATION: 04/27/18 - ROOM #334 DATE OF : 70. ATTENDING SURGEON: Samuel Duque M.D. CUPOLA TAPPER: Anne-Marie Hopper PA-C. PRE-OP DIAGNOSIS: Displaced fractures, left 3rd and 4th metatarsals. POST-OP DIAGNOSIS: Displaced fractures, left 3rd and 4th metatarsals. OPERATIVE PROCEDURE: Internal fixation of the left 3rd and 4th metatarsal fractures. DESCRIPTION OF PROCEDURE: The patient was taken to the operating room where an oblique incision was made over the 3rd and 4th metatarsals of her left foot. Thigh tourniquet was inflated to 250 mmHg. We incised down to the dorsal aspect of 4th metatarsal bringing the comminuted fracture out to length with a _ clamp plating the distal aspect of the fracture with a 2.4-mm plate and distal cortical and locking screws. We then with the metatarsal head to plate after length in a neutral position, fixed the proximal aspect of the plate with appropriate cortical screws. Through the same incision but through a different interval, we exposed the neck of the 3rd metatarsal and passed a 0.62 C wire distally out to the center of the head exiting the plantar fat pad just proximal to the MTP joint. We then retrograde, drove the pin across the fracture into the shaft of the 3rd metatarsal. X-rays intraoperatively showed satisfactory position of both areas as well as the hardware intact and the second metatarsal at this point was reasonably well aligned and it was not approached. We then irrigated thoroughly closing with 2-0 Vicryl for the deep tissues, interrupted nylon sutures for the skin, and a compression dressing applied. [id number][place] [place] [id number] ZULMA
[2018-04-28] MEDS: Acetaminophen TAB* 325 MG PO SCH (05:24)
--- NOTE | 2018-04-28 06:56 | RAD ---
INDICATION: Left foot operative reduction internal fixation. COMPARISON: Correlation is made to prior outside x-ray study of the left foot from April 20, 2018. TECHNIQUE: 3 second of intermittent fluoroscopic guidance were provided and 4 spot films of the left foot were obtained in the operating room. FINDINGS: There are fractures of the second third and fourth metatarsals. Note is made of a surgical plate present along the dorsal aspect of the fourth metatarsal transfixed with multiple screws spanning the fracture fragments. There is also placement of a K wire spanning the fracture in the third metatarsal. IMPRESSION: INTRAOPERATIVE CONTROL FILMS. CPT II Codes: G9500
--- NOTE | 2018-04-28 07:50 | PN ---
Progress Note - Progress Note Date of Service: 04/28/18 SOAP: Subjective: []Patient seen and examined at bedside. She feels well this morning but reports significant pain overnight. Reports that IV morphine relieves her pain and oxycodone has not been adequate. Denies fever, chills, CP, SOB, dizziness. Objective: []General: Well appearing, NAD LLE: Splint CDI. No erythema proximally. Able to wiggle toes, exposed toes with cap refill less than two seconds and sensation intact to light touch distally. RLE calf supple and nontender without erythema, edema or palpable cords. Assessment: []Left foot internal fixation of the 3rd and 4th metatarsals Plan: []NWB LLE Keep splint CDI Oxycodone 10 mg q 4 prn. December D/C abx Patient should D/C to home. Avoid IV pain medication unless absolutely necessary Vital Signs Temp 96.9 F 04/28/18 07:37 Pulse 82 04/28/18 07:37 Resp 16 04/28/18 07:37 BP 99/61 04/28/18 07:37 Pulse Ox 96 04/28/18 07:37 Intake & Output 04/27/18 04/28/18 04/28/18 18:59 06:59 18:59 Intake Total 590 2693 Output Total 1720 2200 Balance -1130 493 Intake: IV Fluids 350 2233 ABX - VANCOMYCIN 273 CLINDAMYCIN 900MG 50 LR 300 1960 IVPB 260 ABX - VANCOMYCIN 260 Oral 240 200 Output: Urine 1700 2200 Estimated Blood Loss 20 Laboratory Last Values WBC 9.3 10^3/ul (3.5-10.8) 04/23/18 10:40 RBC 4.21 10^6/ul (4.00-5.40) 04/23/18 10:40 Hgb 11.8 g/dl (12.0-16.0) L 04/23/18 10:40 Hct 35 % (35-47) 04/23/18 10:40 MCV 83 fL (80-97) 04/23/18 10:40 MCH 28 pg (27-31) 04/23/18 10:40 MCHC 34 g/dl (31-36) 04/23/18 10:40 RDW 13 % (10.5-15) 04/23/18 10:40 Plt Count 268 10^3/ul (150-450) 04/23/18 10:40 MPV 6.7 um3 (7.4-10.4) L 04/23/18 10:40 Neut % (Auto) 79.5 % (38-83) 04/23/18 10:40 Lymph % (Auto) 14.8 % (25-47) L 04/23/18 10:40 [place] % (Auto) 4.4 % (0-7) 04/23/18 10:40 Eos % (Auto) 1.1 % (0-6) 04/23/18 10:40 Baso % (Auto) 0.2 % (0-2) 04/23/18 10:40 Absolute Neuts (auto) 7.4 10^3/ul (1.5-7.7) 04/23/18 10:40 Absolute Lymphs (auto) 1.4 10^3/ul (1.0-4.8) 04/23/18 10:40 Absolute Monos (auto) 0.4 10^3/ul (0-0.8) 04/23/18 10:40 Absolute Eos (auto) 0.1 10^3/ul (0-0.6) 04/23/18 10:40 Absolute Basos (auto) 0 10^3/ul (0-0.2) 04/23/18 10:40 Absolute Nucleated RBC 0 10^3/ul 04/23/18 10:40 Nucleated RBC % 0.3 04/23/18 10:40 ESR 4 mm/Hr (0-14) 04/23/18 10:40 Sodium 137 mmol/L (135-145) 04/24/18 07:30 Potassium 4.6 mmol/L (3.5-5.0) 04/24/18 07:30 Chloride 105 mmol/L (101-111) 04/24/18 07:30 Carbon Dioxide 24 mmol/L (22-32) 04/24/18 07:30 Anion Gap 8 mmol/L (2-11) 04/24/18 07:30 BUN 12 mg/dL (6-24) 04/26/18 06:08 Creatinine 0.94 mg/dL (0.51-0.95) 04/26/18 06:08 Est GFR ( Amer) 77.2 (>60) 04/26/18 06:08 Est GFR (Non-Af Amer) 63.8 (>60) 04/26/18 06:08 BUN/Creatinine Ratio 14.6 (8-20) 04/24/18 07:30 Glucose 183 mg/dL (70-100) H 04/24/18 07:30 POC Glucose (mg/dL) 188 mg/dL (70-100) H 04/27/18 17:03 Calcium 8.9 mg/dL (8.6-10.3) 04/24/18 07:30 C-Reactive Protein 53.07 mg/L (<8.01) H 04/23/18 10:40 Vancomycin Trough 21.0 mcg/mL 04/28/18 05:41
[2018-04-28] MEDS ORDERED: HYDROcodone/ACETAMIN 5-325 MG* 1 TAB PO PRN ×2 (07:51)
[2018-04-28] MEDS ORDERED: Acetaminophen TAB* 325 MG PO PRN (07:52)
[2018-04-28] MEDS ORDERED: Vancomycin Trough Check NOTE FOLLOW UP ONE (08:00)
[2018-04-28] MEDS ORDERED: oxyCODONE TAB* 5 MG TAB ONE (08:28)
[2018-04-28] MEDS: tiZANidine TAB* 2 MG PO SCH (08:35)
[2018-04-28] MEDS: Dicyclomine CAP* 10 MG PO SCH (08:35)
[2018-04-28] MEDS: Docusate CAP* 100 MG PO SCH (08:36)
[2018-04-28] MEDS: BuPROPion XL* 300 MG TAB.XL PO SCH (08:36)
[2018-04-28] MEDS: Metoclopramide TAB* 10 MG PO SCH (08:36)
[2018-04-28] MEDS: Venlafaxine EXT RELEASE CAP* 75 MG PO SCH (08:37)
[2018-04-28] MEDS: Nabumetone TAB* 500 MG PO SCH (08:37)
[2018-04-28] MEDS: Insulin LISPRO* 1 UNITS UNIT SUBCUT SCH ×2 (08:38→11:57)
[2018-04-28] MEDS: Nystatin TOP POWDER* 15 GM BTL TOPICAL SCH (08:41)
[2018-04-28 15:36] VITALS: BP 116/65
--- NOTE | 2018-04-29 05:19 | DS ---
DISCHARGE SUMMARY: DATE OF ADMISSION: 04/23/18 DATE OF DISCHARGE: 04/28/18 ATTENDING PROVIDER: Samuel Duque MD * (DICTATED BY STEPHANIE WYATT) SURGEON: Samuel Duque MD CIVIL ENGINEER [employer]AND DEVELOPMENT: STEPHANIE Nova PRE-OP DIAGNOSIS: Displaced fractures of the left third and fourth metatarsal. OPERATIVE PROCEDURE: Internal fixation of the left third and fourth metatarsal fractures. INDICATION: Ms. Shah is 47-year-old female with a history of obesity and diabetes. She slipped and fractured her left second, third, and fourth metatarsal bone. She was placed in a cast. Once cast was removed, it was noted that the patient has cellulitis in the area of her left foot over the fracture site. HOSPITAL COURSE: The patient was admitted to [facility] on . She underwent internal fixation of the left third and fourth metatarsal fractures without complication. On postop day 1, dressing was clean, dry, and intact. No erythema proximally, able to wiggle toes. Good capillary refill less than 2 seconds. Sensation intact to light touch distally. Right calf supple and nontender without erythema or edema or palpable cords. Vital Signs: Temperature 96.9, pulse 82, respiratory rate 16, blood pressure 99/61, pulse ox 96. No labs. The patient had been on vancomycin until 04/28/18 for cellulitis and question of deeper underlying infection. It was deemed that the patient no longer needs to be on antibiotics and can be discharged to home safely on 04/28/18. DISCHARGE MEDICATIONS: 1. Relafen 500 mg p.o. b.i.d. 2. Abilify 15 mg tab p.o. q. p.m. 3. Metoclopramide 10 mg p.o. b.i.d. 4. Dicyclomine 10 mg p.o. b.i.d. 5. Trazodone 200 mg p.o. at bedtime. 6. Clonidine 0.3 mg p.o. q. p.m. 7. Venlafaxine 150 mg p.o. q. a.m. 8. Pramipexole 0.5 mg p.o. at bedtime. 9. Bupropion 300 mg p.o. q. a.m. 10. Hydroxyzine 50 mg p.o. at bedtime. 11. Valacyclovir 1 g p.o. daily p.r.n. 12. Omeprazole 20 mg p.o. q. p.m. 13. Ferrous sulfate 325 mg p.o. daily p.r.n. 14. Nystatin 1 application b.i.d. 15. Tizanidine 4 mg p.o. b.i.d. 16. Vitamin D2 50,000 units weekly. 17. Doxycycline is discontinued. 18. Lovastatin 40 mg p.o. at bedtime. 19. Metformin 500 mg p.o. b.i.d. 20. Ibuprofen 600 mg p.o. q. 6 hours p.r.n. 21. Clindamycin discontinued at home. 22. Oxycodone 10 mg p.o. q. 4 hours p.r.n. max of 6 tablets in a day, wean down from this medication as you are able. 23. Lovenox 40 mg subcu q. 24 hours until follow up appointment. FOLLOW UP: Follow up with Dr. Duque in 1 week. DISCHARGE PLAN: The patient will be weightbearing on the operative extremity. Keep the sling clean, dry, and intact. Follow up with Dr. Duque in 1 week. Colace 100 mg by mouth every 12 hours as needed for constipation. Oxycodone 5 mg take 1 to 2 tabs every 4 hours as needed, maximum of 6 per day, follow up with Dr. Duque in 1 week. Lovenox 40 mg subcu q. 24 hours until follow up appointment, then reevaluate the need for anticoagulation. STEPHANIE WYATT [id number]/[facility] #: [id number] MTDSeble
== END 2018-04-28 17:15 | disposition home or self-care (01) | DRG 951 ==
LOC: OR 07:58 → SSU 09:51
PROVIDERS: ADMIT Orthopaedic Surgery; ATTEND Orthopaedic Surgery
PROC: 0QSP04Z Reposition Left Metatarsal with Internal Fixation Device, Open Approach (ICD-10-PCS; principal; 2018-04-27 13:00)
DX: L03.116 Cellulitis of left lower limb (principal); S92.322A Displaced fracture of second metatarsal bone, left foot, initial encounter for closed fracture; S92.332A Displaced fracture of third metatarsal bone, left foot, initial encounter for closed fracture; S92.342A Displaced fracture of fourth metatarsal bone, left foot, initial encounter for closed fracture; W01.0XXA Fall on same level from slipping, tripping and stumbling without subsequent striking against object, initial encounter; E11.9 Type 2 diabetes mellitus without complications; E78.00 Pure hypercholesterolemia, unspecified; M19.90 Unspecified osteoarthritis, unspecified site; E66.9 Obesity, unspecified; E61.1 Iron deficiency; K21.9 Gastro-esophageal reflux disease without esophagitis; D64.9 Anemia, unspecified; F41.9 Anxiety disorder, unspecified; F32.9 Major depressive disorder, single episode, unspecified; G47.00 Insomnia, unspecified; Y92.9 Unspecified place or not applicable; Z79.1 Long term (current) use of non-steroidal anti-inflammatories (NSAID); Z79.84 Long term (current) use of oral hypoglycemic drugs; Z79.899 Other long term (current) drug therapy; Z88.0 Allergy status to penicillin; Z88.8 Allergy status to other drugs, medicaments and biological substances; Z91.040 Latex allergy status; Z82.49 Family history of ischemic heart disease and other diseases of the circulatory system; Z68.29 Body mass index [BMI] 29.0-29.9, adult
CPT/HCPCS: 36415; 76000; 80048; 80202; 82565; 84520; 85025; 85652; 86140; A9270-GY; C1713; J1100; J1650; J2270; J2704; J3010; J3370

== ENCOUNTER 2019-01-27 18:39 | Emergency (ER) | payer OTHER ==
[2019-01-27 18:57] VITALS: BP 126/80
[2019-01-27] MEDS ORDERED: Mupirocin 2% OINT* TUBE TOPICAL ONE (19:03)
--- NOTE | 2019-01-27 19:05 | UC ---
Skin Complaint HPI - HPI Summary HPI Summary: 48-year-old female comes in with a chief complaint of a sunburn with blistering. 3 days ago the patient had sun exposure. She's got sunburn on her shoulders and on her legs. She had some blisters form on her lower anterior thighs. While the blisters broke and the skin tore off on the right anterior thigh. She has not been putting any lotion on these not sure exactly what to use. No fevers or chills. The pain is worse with any Palpation. - History of Current Complaint Chief Complaint: UCSkin Time Seen by Provider: 01/27/19 18:52 Stated Complaint: SKIN CONCERN BOTH LEGS Hx Last Menstrual Period: 01/26/19 Pain Intensity: 10 - Allergy/Home Medications Allergies/Adverse Reactions: Allergies Allergy/AdvReac Type Severity Reaction Status Date / Time bee venom protein (honey bee) Allergy Severe Difficulty Verified 01/27/19 18:57 Breathing/Wheezing Adhesive Tape Allergy Intermediate Rash And Verified 01/27/19 18:57 Itching latex Allergy Intermediate Rash And Verified 01/27/19 18:57 Itching Penicillins Allergy Intermediate Hives Verified 01/27/19 18:57 sulfamethoxazole Allergy Mild Hives Verified 01/27/19 18:57 [From Bactrim] trimethoprim [From Bactrim] Allergy Mild Hives Verified 01/27/19 18:57 acetaminophen AdvReac Severe Facial Verified 01/27/19 18:57 Redness/Flushing alcohol AdvReac Severe Facial Verified 01/27/19 18:57 Redness/Flushing dextromethorphan AdvReac Severe Facial Verified 01/27/19 18:57 Redness/Flushing doxylamine AdvReac Severe Facial Verified 01/27/19 18:57 Redness/Flushing gabapentin AdvReac Severe See Comment Verified 01/27/19 18:57 pseudoephedrine AdvReac Severe Facial Verified 01/27/19 18:57 Redness/Flushing BAND-AIDS Allergy Intermediate Rash And Uncoded 01/27/19 18:57 Itching Home Medications: Home Medications Methylphenidate TAB* [Ritalin TAB*] 10 mg PO DAILY 01/27/19 [History Confirmed 01/27/19] PMH/Surg Hx/FS Hx/Imm Hx Previously Healthy: Yes Endocrine History: Diabetes Cardiovascular History: Hypertension - Surgical History Surgical History: Yes Surgery Procedure, Year, and Place: TONSILLECTOMY 2005 [facility]. X , 1990, AND 1993 [facility]. TUBAL LIGATION 1994 [facility]. REVERSAL OF TUBAL LIGATION 2002 [facility]. TUBAL LIGATION 2008 [facility] - Family History Known Family History: Negative: Diabetes - Social History Alcohol Use: Rare Alcohol Amount: 4 DRINKS/MONTH Substance Use Type: None Smoking Status (MU): Never Smoked Tobacco Have You Smoked in the Last Year: No - Immunization History Most Recent Influenza Vaccination: 2018 Most Recent Pneumonia Vaccination: never Review of Systems All Other Systems Reviewed And Are Negative: Yes Constitutional: Positive: Negative Skin: Positive: Other - SEE HPI Eyes: Positive: Negative ENT: Positive: Negative Respiratory: Positive: Negative Cardiovascular: Positive: Negative Gastrointestinal: Positive: Negative Motor: Positive: Negative Neurovascular: Positive: Negative Musculoskeletal: Positive: Negative Neurological: Positive: Negative Psychological: Positive: Negative Is Patient Immunocompromised?: No Physical Exam Triage Information Reviewed: Yes Appearance: Well-Appearing, No Pain Distress, Well-Nourished Vital Signs: Initial Vital Signs Temp 98.2 F 01/27/19 18:53 Pulse 94 01/27/19 18:53 Resp 16 01/27/19 18:53 BP 126/80 01/27/19 18:53 Pulse Ox 100 01/27/19 18:53 Vital Signs Reviewed: Yes Eye Exam: Normal Eyes: Positive: Conjunctiva Clear Neck: Positive: Supple Respiratory: Positive: No respiratory distress Musculoskeletal: Positive: Strength Intact, ROM Intact Neurological: Positive: Alert, Muscle Tone Normal Psychological: Positive: Normal Response To Family, Age Appropriate Behavior Skin: Positive: Other - Patient has diffuse first-degree sunburn on her shoulders and legs. On the left anterior lower thigh there is several 1 cm fluid-filled blisters. On the right lower anterior thigh there is a 2 cm fluid- filled blister and an area that's 8 cm x 3 cm that's exposed with this top layer of the skin gone. Patient reports there was a blister and skin tore off. Serous drainage. No pus. Course/Dx - Course Course Of Treatment: The plan is to keep the exposed area moist with mupirocin and a cover dressing. Gradually transitioning to letting it dry out. She can also use over-the- counter aloe topically. Also ibuprofen for the pain as needed. Reevaluate if worsening questions or concerns. - Diagnoses Provider Diagnosis: Sunburn of second degree Discharge - Sign-Out/Discharge Documenting (check all that apply): Patient Departure All imaging exams completed and their final reports reviewed: No Studies - Discharge Plan Condition: Stable Disposition: HOME Prescriptions: Mupirocin 1 applic TOPICAL BID #[id number] gm Patient Education Materials: Sunburn (ED), Second Degree Burn (ED) Referrals: Santiago Pablo PA [Primary Care Provider] - Additional Instructions: FOLLOW UP WITH YOUR DOCTOR IF NOT COMPLETELY IMPROVED. GET RECHECKED SOONER IF YOUR CONDITION WORSENS OR ANY QUESTIONS OR CONCERNS. - Billing Disposition and Condition Condition: STABLE Disposition: Home
== END 2019-01-27 19:21 | disposition home or self-care (01) ==
LOC: UCCORT 18:39
DX: L55.1 Sunburn of second degree (principal); E11.9 Type 2 diabetes mellitus without complications; I10 Essential (primary) hypertension
CPT/HCPCS: 99213; G0463